=== PATIENT | female | born 1970 | race Caucasian/White ===

== ENCOUNTER → 2018-07-02 | Outpatient (CLI) | payer OTHER ==
--- NOTE | 2018-07-09 10:59 | RAD ---
DATE: 07/02/2018 EXAM: MAMMO SARWAT SCREENING BILATERAL HISTORY: Breast implants COMPARISON: Baseline study This study was interpreted with the benefit of Computerized Aided Detection (CAD). Breast Density: SCATTERED The breast parenchyma shows scattered fibroglandular densities. Breast parenchyma level B. FINDINGS: Routine and implant exclusion 2-D views were obtained as well as implant exclusion tomosynthesis imaging in CC and MLO projections. Bilateral breast implants are in place. There is an asymmetric nodular opacity the medial aspect of the left breast at approximately the 10:00 location. No other suspicious breast densities are seen. No suspicious clustered microcalcifications are evident. IMPRESSION: Medial left breast nodule. Sonographic evaluation is suggested. BI-RADS CATEGORY: 0 INCOMPLETE: NEEDS ADDITIONAL IMAGING EVALUATION AND/OR PRIOR MAMMOGRAMS FOR COMPARISON. RECOMMENDED FOLLOW-UP: ADD ADDITIONAL IMAGING PQRS compliance statement: Patient information was entered into a reminder system with a target due date for the next mammogram. Mammography is a sensitive method for finding small breast cancers, but it does not detect them all and is not a substitute for careful clinical examination. A negative mammogram does not negate a clinically suspicious finding and should not result in delay in biopsying a clinically suspicious abnormality. "Our facility is accredited by the [employer] Mammography Program."
== END | disposition home or self-care (01) ==
LOC: MAMMO 09:38
PROVIDERS: ATTEND Physician Assistant Medical
DX: Z12.31 Encounter for screening mammogram for malignant neoplasm of breast (principal); N63.22 Unspecified lump in the left breast, upper inner quadrant
CPT/HCPCS: 77063; 77067

== ENCOUNTER → 2018-07-15 | Outpatient (CLI) | payer OTHER ==
--- NOTE | 2018-07-15 15:36 | RAD ---
Left breast ultrasound, 07/15/2018: History: Breast nodule A targeted ultrasound exam of the left breast was performed. At the 10:00 location approximates 6 cm from the nipple there is a complicated nodule which corresponds to the mammographic abnormality. There are low level echoes centrally with posterior acoustic enhancement suggesting a cystic component. There is a rim of medium echogenicity which is somewhat irregular. There is a 4 mm hypoechoic nodule related to the thickened rim. While this could represent an old hematoma, a neoplastic etiology cannot be excluded and biopsy is suggested. IMPRESSION: Complicated left breast nodule as described above. Ultrasound-guided biopsy is suggested for further evaluation. BI-RADS 4-suspicious abnormality. Note: The process safety engineering technologist notified the patient of these findings at the time of the exam. The patient is aware of our recommendation for biopsy and will follow-up with the ordering provider.
== END | disposition home or self-care (01) ==
LOC: US 14:05
PROVIDERS: ATTEND Physician Assistant Medical
DX: N63.22 Unspecified lump in the left breast, upper inner quadrant (principal)
CPT/HCPCS: 76641